=== PATIENT | male | born 1950 | race Caucasian/White ===

== ENCOUNTER 2023-03-01 00:04 | Emergency (ER) | payer MEDICARE ==
[~2023-03-01] VITALS: Ht 185.4 cm; Wt 108.9 kg
[2023-03-01 00:18] VITALS: BP 137/85
[2023-03-01] MEDS ORDERED: JARDIANCE10 MG (00:25)
[2023-03-01] MEDS ORDERED: METF500 (00:25)
[2023-03-01] MEDS ORDERED: METO25 (00:25)
[2023-03-01] MEDS ORDERED: ASPI81CH (00:25)
[2023-03-01] MEDS ORDERED: BASAGLAR K100 UNIT/1 (00:26)
[2023-03-01] MEDS ORDERED: ATOR20 (00:26)
[2023-03-01] MEDS ORDERED: ELIQUIS2.5 MG (00:27)
[2023-03-01] MEDS ORDERED: FISH OIL 1,2001 EAC7 (00:27)
[2023-03-01 00:49] LABS: BASOPHILS ABSOLUTE AUTO 0.07 K/mm3 (0.00-0.23); BASOPHILS PERCENT AUTO 1 % (0-2); EOSINOPHILS ABSOLUTE AUTO 0.19 K/mm3 (0.00-0.68); EOSINOPHILS PERCENT AUTO 3 % (0-6); Hematocrit 40.5 % (37.0-53.0); Hemoglobin 13.6 g/dL (13.5-17.5); IMMATURE GRAN ABSOLUTE AUTO 0.01 K/mm3 (0.00-0.10); IMMATURE GRAN PERCENT AUTO 0 % (0-1); LYMPHOCYTES ABSOLUTE AUTO 2.84 K/mm3 (0.84-5.20); LYMPHOCYTES PERCENT AUTO 39 % (21-46); MONOCYTES ABSOLUTE AUTO 0.61 K/mm3 (0.16-1.47); MONOCYTES PERCENT AUTO 8 % (4-13); Mean Corpuscular HGB 29.4 pg (26.0-34.0); Mean Corpuscular HGB Conc 33.6 g/dL (31.5-36.5); Mean Corpuscular Volume 88 fL (80-100); NEUTROPHILS ABSOLUTE AUTO 3.51 K/mm3 (1.96-9.15); NEUTROPHILS PERCENT AUTO 49 % (41-73); Platelet Count 176 K/mm3 (150-400); RDW Coefficient Variation 13.1 % (11.7-14.2); RDW Standard Deviation 42.2 fL (35.1-46.3); Red Blood Cell Count 4.63 M/mm3 (4.30-5.90); White Blood Cell Count 7.23 K/mm3 (4.00-11.30)
[2023-03-01 01:06] LABS: International Normalized Ratio 1.01; Prothrombin Time Results 10.6 Sec (9.7-11.5)
[2023-03-01 01:12] LABS: Albumin, Blood 3.4 g/dL (3.4-5.0); Bilirubin, Total 0.3 mg/dL (0.1-1.0); Bun/Creatinine Ratio 15.3 (12.0-20.0); Calcium, Blood 8.9 mg/dL (8.5-10.1); Creatinine, Blood 1.24 mg/dL (0.60-1.20); Globulin, Blood 3.4 g/dL (2.2-4.0); Potassium, Blood 4.3 mmol/L (3.5-5.5); Total Protein, Blood 6.8 g/dL (6.4-8.2)
[2023-03-01] MEDS ORDERED: MECL25 PO (02:37)
== END 2023-03-01 02:52 | disposition home or self-care (01) ==
LOC: ER 00:04
PROVIDERS: Student in an Organized Health Care Education/Training Program
DX: K06.8 Other specified disorders of gingiva and edentulous alveolar ridge (principal); Z88.8 Allergy status to other drugs, medicaments and biological substances; Z79.899 Other long term (current) drug therapy; Z79.82 Long term (current) use of aspirin; Z79.84 Long term (current) use of oral hypoglycemic drugs; Z79.4 Long term (current) use of insulin; E11.9 Type 2 diabetes mellitus without complications
CPT/HCPCS: 80053; 85025; 85610; 99283

== ENCOUNTER 2023-07-23 05:50 | Day surgery (SDC) | payer MEDICARE ==
[2023-07-23] VITALS (14 sets, daily range): BP systolic 115–162; BP diastolic 55–89
[~2023-07-23] VITALS: Ht 182.9 cm; Wt 108.1 kg
[~2023-07-23 05:50] MED LIST: ALBU90OI INH; ASPI81CH; ASPI81CH PO; ATOR20; ATOR40TA PO; BASAGLAR K100 UNIT/1; ELIQUIS2.5 MG; ELIQUIS2.5 MG PO; FISH OIL 1,2001 EAC7; Hytrin2 MG PO; INSULANI SC; JARDIANCE10 MG; JARDIANCE10 MG PO; MECL25 PO; METF500; METF500 PO; METO25; METO25ER PO; NOVOLOG100 UNIT/3 SC; SILD25T PO; THERA-D2000 UNIT PO
--- NOTE | 2023-07-23 08:29 | NUR ---
07/23/23 0829 Fely Whitmore PRIOR TO ARRIVING IN THE OR THE PATIENT ALSO RECEIVED VANCO 1GM IV IN THE PREOP SETTING.
--- NOTE | 2023-07-23 16:19 | NUR ---
SHIFT SUMMARY PATIENT IS AOX4, S/P R-TKA. BULKY DRESSING IN PLACE WITH NONI WRAP C/D/I. WORKED WITH THERAPY, UP IN A CHAIR. POLAR BALBIR IN PLACE. TOLERATING PO INTAKE. IV ABX AND FLUIDS TKO. PATIENT DENIES N/T IN ALL EXT'S, DENIES PAIN AT THIS TIME. MEDICATED WITH SCHEDULED TYLENOL AND TORADOL. VSS, AND CALL LIGHT IN REACH.
--- NOTE | 2023-07-24 04:46 | NUR ---
SHIFT SUMMARY POD1 R TKA. SENSATION AND CIRCULATION REMAIN INTACT IN RLE. DRESSING IS C/D/I. VSS. PT SLEPT ON AND OFF T/O THE NIGHT. AMBULATED TO THE BATHROOM TO VOID W/O DIFFICULTY. TOLLERATING PO INTAKE W/O N/V. PT HAS ONLY TAKEN SCHEDULED PAIN MEDICATION AND HAS REPORTED MINIMAL DISCOMFORT T/O THE NIGHT. NO ACUTE EVENTS NOTED. PLAN FOR PT TO WORK WITH PHYSICAL THERAPY AGAIN THIS AM AND D/C HOME.
[2023-07-24 04:59] VITALS: BP 128/69
[2023-07-24 06:31] LABS: BASOPHILS ABSOLUTE AUTO 0.03 K/mm3 (0.00-0.23); BASOPHILS PERCENT AUTO 0 % (0-2); EOSINOPHILS ABSOLUTE AUTO 0.02 K/mm3 (0.00-0.68); EOSINOPHILS PERCENT AUTO 0 % (0-6); Hematocrit 36.6 % (37.0-53.0); Hemoglobin 12.4 g/dL (13.5-17.5); IMMATURE GRAN ABSOLUTE AUTO 0.05 K/mm3 (0.00-0.10); IMMATURE GRAN PERCENT AUTO 0 % (0-1); LYMPHOCYTES ABSOLUTE AUTO 1.72 K/mm3 (0.84-5.20); LYMPHOCYTES PERCENT AUTO 14 % (21-46); MONOCYTES ABSOLUTE AUTO 1.13 K/mm3 (0.16-1.47); MONOCYTES PERCENT AUTO 9 % (4-13); Mean Corpuscular HGB 29.7 pg (26.0-34.0); Mean Corpuscular HGB Conc 33.9 g/dL (31.5-36.5); Mean Corpuscular Volume 88 fL (80-100); Mean Platelet Volume 10.3 fL (9.1-12.4); NEUTROPHILS ABSOLUTE AUTO 9.07 K/mm3 (1.96-9.15); NEUTROPHILS PERCENT AUTO 76 % (41-73); Platelet Count 171 K/mm3 (150-400); RDW Coefficient Variation 12.8 % (11.7-14.2); RDW Standard Deviation 40.9 fL (35.1-46.3); Red Blood Cell Count 4.17 M/mm3 (4.30-5.90); White Blood Cell Count 12.02 K/mm3 (4.00-11.30)
--- NOTE | 2023-07-24 06:34 | NUR ---
DOCTOR ROUNDING DR. TORRES ROUNDED ON THIS PT AND CHANGED DRESSING ON R TKA.
[2023-07-24 07:01] LABS: Bun/Creatinine Ratio 27.1 (12.0-20.0); Calcium, Blood 8.5 mg/dL (8.5-10.1); Creatinine, Blood 1.55 mg/dL (0.60-1.20); Potassium, Blood 4.5 mmol/L (3.5-5.5)
[2023-07-24 07:07] VITALS: BP 132/73
[2023-07-24] MEDS ORDERED: OXAYDO5 M1 PO (07:23)
[2023-07-24] MEDS ORDERED: PROM12.5S PO (07:24)
[2023-07-24] MEDS ORDERED: SULTRIDS PO (07:25)
--- NOTE | 2023-07-24 10:01 | NUR ---
DISCHARGE SUMMARY POD1 R TKA, A/OX4, VSS, TOLERATING PO, AMBULATING WELL WITH SBA, MARCELL TO R KNEE C/D/I DURING ASSESSMENT BUT THEN HAD A SCANT SPOT AFTER WORKING WITH THERAPY, IV ACCESS REMOVED. DISCUSSED DISCHARGE INSTRUCTIONS INCLUDING HOME CARE, MEDICATIONS, AND FOLLOW UP APPOINTMENTS. NO QUESTIONS AT THIS TIME, PT LEFT VIA WC TO PRIVATE AUTO TO GO HOME. PT DECLINED NEED FOR PHENERGAN SCRIPT. ADVISED TO CALL WITH PHARMACY INFORMATION IN [place] WHEN HE GETS THERE IF HE WANTS IT.
== END 2023-07-24 09:47 | disposition home or self-care (01) ==
LOC: ORSCMMR 05:50 → ORD 07:30 → SURS 10:46 → ORD 14:00 → ORSCMMR 07-24 09:47
PROVIDERS: Orthopaedic Surgery
PROC: 0SRC0J9 Replacement of Right Knee Joint with Synthetic Substitute, Cemented, Open Approach (ICD-10-PCS; principal; 2023-07-23 07:30)
DX: M17.0 Bilateral primary osteoarthritis of knee (principal); E11.22 Type 2 diabetes mellitus with diabetic chronic kidney disease; N18.9 Chronic kidney disease, unspecified; Z79.4 Long term (current) use of insulin; I25.10 Atherosclerotic heart disease of native coronary artery without angina pectoris; E78.5 Hyperlipidemia, unspecified; Z79.899 Other long term (current) drug therapy; Z79.01 Long term (current) use of anticoagulants; E66.9 Obesity, unspecified; Z68.32 Body mass index [BMI] 32.0-32.9, adult; Z79.84 Long term (current) use of oral hypoglycemic drugs
CPT/HCPCS: 36415; 73560-RT; 80048; 82947; 83735; 85025; 97110; 97116; 97162; 97530; A9270; C1713; C1776; J0171; J0690; J0735; J1170; J1815; J1885; J2250; J2371; J2704; J2795; J3010; J3370; J7120

== ENCOUNTER 2024-09-09 22:47 | Emergency (ER) | payer MEDICARE ==
[~2024-09-09] VITALS: Ht 182.9 cm; Wt 109.8 kg
[~2024-09-09 22:47] MED LIST changes: +OXAYDO5 M1 PO; +PROM12.5S PO; +SULTRIDS PO
[2024-09-10 03:15] VITALS: BP 162/95
[2024-09-10] MEDS ORDERED: Lidocaine 4% 1 Patch TOP ONE (03:20)
[2024-09-10] MEDS ORDERED: LIDO700A20 TOP (03:21)
== END 2024-09-10 03:52 | disposition home or self-care (01) ==
LOC: ER 22:47
DX: S22.32XA Fracture of one rib, left side, initial encounter for closed fracture (principal); S42.402A Unspecified fracture of lower end of left humerus, initial encounter for closed fracture; W18.30XA Fall on same level, unspecified, initial encounter; Z59.89 Other problems related to housing and economic circumstances; E11.9 Type 2 diabetes mellitus without complications; Z91.041 Radiographic dye allergy status; Z79.899 Other long term (current) drug therapy; Z79.84 Long term (current) use of oral hypoglycemic drugs; Z79.4 Long term (current) use of insulin; Z79.02 Long term (current) use of antithrombotics/antiplatelets; Z79.01 Long term (current) use of anticoagulants; Z79.891 Long term (current) use of opiate analgesic; Z79.1 Long term (current) use of non-steroidal anti-inflammatories (NSAID); Z79.2 Long term (current) use of antibiotics
CPT/HCPCS: 71101; 99283-25; A9270